=== PATIENT | female | born 1990 | race American Indian/Alaskan Native ===

== ENCOUNTER 2019-08-31 09:16 | Emergency (ER) | payer SELFPAY ==
[2019-08-31 09:43] VITALS: BP 121/69
[2019-08-31] MEDS ORDERED: TETANUS,DIPH,PERTUSS(ACELL) VACCINE 0.5 ML SYRINGE IM ONE (11:16)
[2019-08-31] MEDS ORDERED: IBUPROFEN 600 MG TAB PO ONE (11:17)
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
== END 2019-08-31 11:43 | disposition home or self-care (01) ==
LOC: ED 09:16
DX: S21.001A Unspecified open wound of right breast, initial encounter (principal); F17.200 Nicotine dependence, unspecified, uncomplicated; Z88.0 Allergy status to penicillin; X58.XXXA Exposure to other specified factors, initial encounter; Y93.89 Activity, other specified; Y92.89 Other specified places as the place of occurrence of the external cause; Y99.8 Other external cause status
CPT/HCPCS: 90471; 90715